=== PATIENT | male | born 1950 | race Asian ===

== ENCOUNTER 2020-05-16 09:58 | Outpatient (CLI) | payer OTHER, SELFPAY | END 2020-05-16 23:59 | disposition home or self-care (01) | LOC: MLB 09:58 → EDSTATUS 05-26 13:45 | PROVIDERS: ATTEND Internal Medicine Gastroenterology | DX: Z01.818 Encounter for other preprocedural examination (principal); Z11.59 Encounter for screening for other viral diseases; Z86.010 Personal history of colon polyps | CPT/HCPCS: U0003-CS ==

== ENCOUNTER 2024-02-20 11:43 | Day surgery (SDC) | payer OTHER ==
[~2024-02-20] VITALS: Ht 162.6 cm; Wt 49.0 kg
[2024-02-20] MEDS ORDERED: fentaNYL citrate 0.05 MG/ML VIAL ONE (13:25)
[2024-02-20] MEDS ORDERED: MIDAZOLAM 5 MG/5 ML VIAL ONE (13:25)
[2024-02-20] MEDS: fentaNYL citrate 0.05 MG/ML VIAL IVP ONE (13:48)
== END 2024-02-20 15:25 | disposition home or self-care (01) ==
LOC: MOR 11:43 → MMU 12:05 → MOR 15:25
PROVIDERS: ATTEND Internal Medicine Gastroenterology
DX: K59.00 Constipation, unspecified (principal); K57.30 Diverticulosis of large intestine without perforation or abscess without bleeding; K64.8 Other hemorrhoids; E78.00 Pure hypercholesterolemia, unspecified; Z85.038 Personal history of other malignant neoplasm of large intestine; Z79.899 Other long term (current) drug therapy; Z98.890 Other specified postprocedural states
CPT/HCPCS: 45378; J3010; J2250